=== PATIENT | male | born 1970 | race Caucasian/White ===

== ENCOUNTER 2020-05-25 20:33 | Emergency (ER) | payer OTHER ==
--- NOTE | 2020-05-25 20:37 | ED Physician Documentation ---
PD HPI CHEST PAIN - Stated complaint Stated Complaint: CP - History obtained from History obtained from: Patient - History of Present Illness Timing - onset: How many minutes ago (30) Timing - onset during: Rest Timing - duration: Minutes (20-30) Timing - details: Abrupt onset Pain level max: 4 Pain level now: 0 Quality: Pressure Location: Substernal Radiation: Back Improved by: Nothing Worsened by: Other (no exacerbating factors) Associated symptoms: No: Shortness of air, Diaphoresis, Nausea, Vomiting, Feeling faint / dizzy, General Weakness, Palpitations Similar symptoms before: Has not had sx before Recently seen: Not recently seen - Additional information Additional information: patient c/o midline chest pressure with similar sensation upper back, describes it as sensation of his chest and upper back being squeezed towards each other. His first episode was Sunday (2 days ago) while walking, lasted only 30-60 seconds. He had not previously had this symptom. He had recurrence of this discomfort tonight, approximately 30 minutes [employer] while at home at rest. Denies dyspnea, nausea, diaphoresis. No exacerbating nor ameliorating factors. He has not seen a doctor for a few years but has no known medical history or medical problems. Currently (on this H+P), he is asymptomatic. Review of Systems Constitutional: reports: Reviewed and negative Eyes: reports: Reviewed and negative Ears: reports: Reviewed and negative Nose: reports: Reviewed and negative Throat: reports: Reviewed and negative Cardiac: reports: Chest pain / pressure. denies: Palpitations, Pedal edema, Calf pain Respiratory: reports: Reviewed and negative GI: reports: Reviewed and negative : denies: Dysuria, Frequency Skin: reports: Reviewed and negative Musculoskeletal: reports: Back pain (pressure/squeezing to back that is similar to the pressure felt in the anterior chest) Neurologic: reports: Reviewed and negative PD PAST MEDICAL HISTORY - Past Medical History Past Medical History: No - Past Surgical History Past Surgical History: No - Present Medications Home Medications: Ambulatory Orders Medication Instructions Recorded Confirmed No Known Home Medications 05/25/20 05/25/20 - Allergies Allergies/Adverse Reactions: Allergies Allergy/AdvReac Type Severity Reaction Status Date / Time No Known Drug Allergies Allergy Verified 05/25/20 20:51 - Living Situation Living Arrangement: reports: At home - Social History Does the pt smoke?: No PD ED PE NORMAL - Vitals Vital signs reviewed: Yes - General General: Alert and oriented X 3, No acute distress, Well developed/nourished - HEENT HEENT: Moist mucous membranes - Neck Neck: Supple, no meningeal sign - Cardiac Cardiac: RRR, No murmur, No gallop, No rub - Respiratory Respiratory: No respiratory distress, Clear bilaterally - Abdomen Abdomen: Soft, Non tender - Derm Derm: Normal color, Warm and dry - Extremities Extremities: No edema - Neuro Neuro: Alert and oriented X 3 Results - Vitals Vitals: Vital Signs - 24 hr 05/25/20 05/25/20 05/25/20 20:36 20:45 20:50 Temperature 36.5 C Heart Rate 91 84 Respiratory 28 H 27 H Rate Blood Pressure 188/106 H 188/110 H Blood Pressure 187/112 H [Right] O2 Saturation 98 98 05/25/20 05/25/20 05/26/20 22:29 23:31 00:13 Temperature 36.5 C Heart Rate 77 76 82 Respiratory 23 21 27 H Rate Blood Pressure 185/113 H 184/117 H 172/111 H Blood Pressure [Right] O2 Saturation 96 98 98 05/26/20 05/26/20 05/26/20 00:30 01:06 01:43 Temperature Heart Rate 84 85 74 Respiratory 14 18 20 Rate Blood Pressure 184/137 H 160/82 H 151/90 H Blood Pressure [Right] O2 Saturation 96 96 95 05/26/20 02:20 Temperature Heart Rate 84 Respiratory 19 Rate Blood Pressure 134/67 H Blood Pressure [Right] O2 Saturation 95 Oxygen O2 Source Room air - EKG (time done) No standard instances Rate: Rate (enter#) (84) Rhythm: NSR Tow: Normal Intervals: Normal NH QRS: Normal Ischemia: ST depression (minimal (less than 1 mm) ST depression V4, V5), Q waves (isolated QIII) - Labs Labs: Laboratory Tests 05/25/20 05/25/20 05/25/20 20:42 20:42 20:42 WBC 12.9 H RBC 5.34 Hgb 16.0 Hct 46.4 MCV 86.9 MCH 30.0 MCHC 34.5 RDW 12.3 Plt Count 336 MPV 10.3 Neut # (Auto) 9.1 H Lymph # (Auto) 2.8 [place] # (Auto) 0.6 Eos # (Auto) 0.2 Baso # (Auto) 0.1 Absolute Nucleated RBC 0.00 Nucleated RBC % 0.0 VBG pH VBG pCO2 VBG pO2 VBG HCO3 VBG Total CO2 VBG O2 Saturation VBG Base Excess Sodium 138 Potassium 4.3 Chloride 98 L Carbon Dioxide 28 Anion Gap 12.0 BUN 14 Creatinine 1.0 Estimated GFR (MDRD) 80 L Glucose 454 H POC Whole Bld Glucose Calcium 9.6 Total Bilirubin 0.6 AST 13 ALT 25 Alkaline Phosphatase 114 Troponin I High Sens 31.7 H* Total Protein 7.5 Albumin 4.6 Globulin 2.9 Albumin/Globulin Ratio 1.6 Lipase 29 Nasal Adenovirus (PCR) Nasal B. parapertussis DNA (PCR) Nasal Coronavir 229E PCR Nasal Coronavir HKU1 PCR Nasal Coronavir NL63 PCR Nasal Coronavir OC43 PCR Nasal Enterovir/Rhinovir PCR Nasal Influenza B PCR Nasal Influenza A PCR Nasal Parainfluen 1 PCR Nasal Parainfluen 2 PCR Nasal Parainfluen 3 PCR Nasal Parainfluen 4 PCR Nasal RSV (PCR) Nasal B.pertussis DNA PCR Nasal C.pneumoniae (PCR) [place] Human Metapneumo PCR Nasal M.pneumoniae (PCR) Nasal SARS-CoV-2 (PCR) Serum Ketones 05/25/20 05/25/20 05/25/20 20:42 21:31 22:04 WBC RBC Hgb Hct MCV MCH MCHC RDW Plt Count MPV Neut # (Auto) Lymph # (Auto) [place] # (Auto) Eos # (Auto) Baso # (Auto) Absolute Nucleated RBC Nucleated RBC % VBG pH 7.428 H VBG pCO2 32.9 L VBG pO2 80.5 H VBG HCO3 21.2 L VBG Total CO2 22.3 L VBG O2 Saturation 96.4 H VBG Base Excess -2.1 L Sodium Potassium Chloride Carbon Dioxide Anion Gap BUN Creatinine Estimated GFR (MDRD) Glucose POC Whole Bld Glucose 429 H Calcium Total Bilirubin AST ALT Alkaline Phosphatase Troponin I High Sens Total Protein Albumin Globulin Albumin/Globulin Ratio Lipase Nasal Adenovirus (PCR) Nasal B. parapertussis DNA (PCR) Nasal Coronavir 229E PCR Nasal Coronavir HKU1 PCR Nasal Coronavir NL63 PCR Nasal Coronavir OC43 PCR Nasal Enterovir/Rhinovir PCR Nasal Influenza B PCR Nasal Influenza A PCR Nasal Parainfluen 1 PCR Nasal Parainfluen 2 PCR Nasal Parainfluen 3 PCR Nasal Parainfluen 4 PCR Nasal RSV (PCR) Nasal B.pertussis DNA PCR Nasal C.pneumoniae (PCR) [place] Human Metapneumo PCR Nasal M.pneumoniae (PCR) Nasal SARS-CoV-2 (PCR) Serum Ketones NEGATIVE 05/25/20 05/25/20 05/26/20 23:01 23:30 00:52 WBC RBC Hgb Hct MCV MCH MCHC RDW Plt Count MPV Neut # (Auto) Lymph # (Auto) [place] # (Auto) Eos # (Auto) Baso # (Auto) Absolute Nucleated RBC Nucleated RBC % VBG pH VBG pCO2 VBG pO2 VBG HCO3 VBG Total CO2 VBG O2 Saturation VBG Base Excess Sodium Potassium Chloride Carbon Dioxide Anion Gap BUN Creatinine Estimated GFR (MDRD) Glucose POC Whole Bld Glucose 400 H Calcium Total Bilirubin AST ALT Alkaline Phosphatase Troponin I High Sens 70.9 H* Total Protein Albumin Globulin Albumin/Globulin Ratio Lipase Nasal Adenovirus (PCR) NOT DETECTED Nasal B. parapertussis DNA (PCR) NOT DETECTED Nasal Coronavir 229E PCR NOT DETECTED Nasal Coronavir HKU1 PCR NOT DETECTED Nasal Coronavir NL63 PCR NOT DETECTED Nasal Coronavir OC43 PCR NOT DETECTED Nasal Enterovir/Rhinovir PCR NOT DETECTED Nasal Influenza B PCR NOT DETECTED Nasal Influenza A PCR NOT DETECTED Nasal Parainfluen 1 PCR NOT DETECTED Nasal Parainfluen 2 PCR NOT DETECTED Nasal Parainfluen 3 PCR NOT DETECTED Nasal Parainfluen 4 PCR NOT DETECTED Nasal RSV (PCR) NOT DETECTED Nasal B.pertussis DNA PCR NOT DETECTED Nasal C.pneumoniae (PCR) NOT DETECTED [place] Human Metapneumo PCR NOT DETECTED Nasal M.pneumoniae (PCR) NOT DETECTED Nasal SARS-CoV-2 (PCR) NOT DETECTED Serum Ketones - Rads (name of study) chest xray Radiology: Prelim report reviewed, See rad report PD MEDICAL DECISION MAKING - ED course Complexity details: reviewed results, re-evaluated patient, considered differential, d/w patient ED course: nonspecific findings on nearly-normal EKG (questionable minimal ST depression V4, V5). However, patient's high sensitivity troponin is 31.7, representing a mild increase above normal. Also noted are persistently high blood pressure readings (110s diastolic, with systolic ranging from 170s-190s) as well as markedly elevated blood sugar (450s). Patient does not have diagnosis of DM nor HTN, although he has not seen a PMD on a recent nor regular basis. Serum ketones negative. Two-hour repeat high sensitivity troponin is more than doubled to 70.9 which is certainly a concerning finding. He has had some further episodes of his chest discomfort while in ED, both at rest as well as with ambulation to bathroom. He does not get other symptoms with this (denies nausea, dyspnea, lightheadedness, diaphoresis). He is given 325mg PO aspirin, heparin IV per cardiac protocol including bolus. One inch of NTP applied to chest wall (subsequent to this his blood pressure improved significantly). I discussed the case with Dr. Mclaughlin (cardiology personnel consultant at [facility]), agrees patient should be transferred to [facility]. He recommends 300mg PO Plavix as well and this is given. I discussed the case with Dr. Adames (hospitalist at [facility]), accepts patient for transfer to [facility]. Vital signs remained stable during ED stay. All results d/w patient as they were received and he was kept informed by ED RN and myself of recommendations for treatment and transfer and he expresses understanding of, and agreement with, these treatments and transfer. Departure - Departure Disposition: 02 Transfer Acute Care Hosp Clinical Impression: Unstable angina, Hyperglycemia Hypertension Qualifiers: Hypertension type: unspecified Qualified Code(s): I10 - Essential (primary) hypertension Condition: Stable Discharge Date/Time: 05/26/20 02:48
[2020-05-25 21:03] LABS: BASOPHILS # (AUTO) 0.1 10^3/uL (0.0-0.1); BASOPHILS % (AUTO) 0.5 %; EOSINOPHILS # (AUTO) 0.2 10^3/uL (0.0-0.7); EOSINOPHILS % (AUTO) 1.6 %; HCT - HEMATOCRIT 46.4 % (42.0-52.0); LYMPHOCYTES # (AUTO) 2.8 10^3/uL (1.5-3.5); LYMPHOCYTES % (AUTO) 21.6 %; MEAN CORPUSCULAR HGB CONC 34.5 g/dL (32.0-36.0); MEAN CORPUSCULAR VOLUME 86.9 fL (80.0-94.0); MEAN PLATELET VOLUME 10.3 fL (7.4-11.4); MONOCYTES # (AUTO) 0.6 10^3/uL (0.0-1.0); MONOCYTES % (AUTO) 4.9 %; NEUTROPHILS # (AUTO) 9.1 10^3/uL (1.5-6.6); PLT - PLATELET COUNT 336 10^3/uL (130-450); RED BLOOD COUNT 5.34 10^6/uL (4.70-6.10); RED CELL DISTRIBUTION WIDTH 12.3 % (12.0-15.0); WHITE BLOOD COUNT 12.9 x10^3/uL (4.8-10.8)
[2020-05-25 21:15] LABS: ALBUMIN 4.6 g/dL (3.2-5.5); ALBUMIN/GLOBULIN RATIO 1.6 (1.0-2.2); BILIRUBIN,TOTAL 0.6 mg/dL (0.2-1.0); CALCIUM 9.6 mg/dL (8.5-10.3); POTASSIUM 4.3 mmol/L (3.5-5.0); TOTAL PROTEIN 7.5 g/dL (6.7-8.2)
--- NOTE | 2020-05-25 21:39 | XRAY Report ---
PROCEDURE: Chest 2 View X-Ray INDICATIONS: chest pain TECHNIQUE: 2 view(s) of the chest. COMPARISON: None. FINDINGS: Surgical changes and devices: None. Lungs and pleura: No pleural effusions or pneumothorax. Lungs are clear. Mediastinum: Mediastinal contours are normal. Heart size is normal. Bones and chest wall: No suspicious bony abnormalities. Soft tissues appear unremarkable. IMPRESSION: No acute pulmonary process. Reviewed by: Shannon Mora MD on 05/25/2020 9:38 PM [facility] Approved by: Shannon Mora MD on 05/25/2020 9:38 PM [facility] Station ID: [id number]
[2020-05-25 21:42] LABS: VBG BASE EXCESS -2.1 mmol/L (-2 - +2); VBG HCO3 21.2 mmol/L (23-28); VBG OXYGEN SATURATION 96.4 % (60-80); VBG PCO2 32.9 mmHg (41-51); VBG PH 7.428 (7.31-7.41); VBG PO2 80.5 mmHg (25-47); VBG TOTAL CO2 22.3 mmol/L (24-29)
[2020-05-25] MEDS ORDERED: SODIUM CHLORIDE 0.9% 1,000 ML IV STA (22:10)
[2020-05-25] MEDS ORDERED: ASPIRIN CHEW 81 MG TABLET PO STA (23:41)
[2020-05-25] MEDS ORDERED: NITROGLYCERIN 2% PASTE TOP STA (23:42)
[2020-05-25] MEDS ORDERED: HEPARIN 25000UNITS/500ML (D5W) 25,000 UNIT/500 ML BAG IV SCH (23:45)
[2020-05-26] MEDS ORDERED: CLOPIDOGREL 300 MG TABLET PO STA (00:51)
[2020-05-26 01:51] LABS: CORONAVIRUS 229E-RESP PCR NOT DETECTED; CORONAVIRUS HKU1-RESP PCR NOT DETECTED; CORONAVIRUS NL63-RESP PCR NOT DETECTED; CORONAVIRUS OC43-RESP PCR NOT DETECTED
[2020-05-26 01:52] LABS: B. PARAPERTUSSIS- RESP PCR PAN NOT DETECTED; B. PERTUSSIS- RESP PCR PANEL NOT DETECTED; C. PNEUMONIAE- RESP PCR PANEL NOT DETECTED; HUMAN METAPNEUMOVIRUS NOT DETECTED; INFLUENZA A- RESP PCR PANEL NOT DETECTED; INFLUENZA B - RESP PCR PANEL NOT DETECTED; M. PNEUMONIAE- RESP PCR PANEL NOT DETECTED; PARAINFLUENZA VIRUS 1 NOT DETECTED; PARAINFLUENZA VIRUS 2 NOT DETECTED; PARAINFLUENZA VIRUS 3 NOT DETECTED; PARAINFLUENZA VIRUS 4 NOT DETECTED; RHINOVIRUS/ENTEROVIRUS NOT DETECTED; RSV- RESP PCR PANEL NOT DETECTED; SARS-CoV-2 -RESP PCR PANEL NOT DETECTED
[2020-05-26 02:20] VITALS: BP 134/67
== END 2020-05-26 02:48 | disposition short-term general hospital (02) ==
LOC: ED 20:33
DX: I20.0 Unstable angina (principal); I10 Essential (primary) hypertension; R73.9 Hyperglycemia, unspecified; Z20.822 Contact with and (suspected) exposure to COVID-19
CPT/HCPCS: 0202U; 36415; 71046; 80053; 82009; 82803; 83690; 84484; 85025; 93005; 96374; 99284; 99285; A9270

== ENCOUNTER 2020-05-26 02:49 | Outpatient (CLI) | payer OTHER | END 2020-05-26 02:50 | disposition short-term general hospital (02) | LOC: EMS 02:49 | PROVIDERS: ATTEND Emergency Medicine | DX: I21.4 Non-ST elevation (NSTEMI) myocardial infarction (principal); I20.0 Unstable angina | CPT/HCPCS: A0425; A0426 ==

== ENCOUNTER 2021-06-26 07:25 | Emergency (ER) | payer OTHER ==
[2021-06-26] MEDS ORDERED: HYDROmorphone 1 MG/ML CARPUJECT IVP STA (07:49)
[2021-06-26] MEDS ORDERED: ONDANSETRON 4 MG/2 ML VIAL IVP STA (07:49)
[2021-06-26] MEDS ORDERED: KETOROLAC 30 MG/ML VIAL IVP STA (07:49)
--- NOTE | 2021-06-26 07:53 | ED Physician Documentation ---
PD HPI ABD PAIN - Stated complaint Stated Complaint: BACK/ABD PAIN - Chief complaint Chief Complaint: Abd Pain - History obtained from History obtained from: Patient - Additional information Additional information: 51-year-old gentleman with history of coronary disease, with TX stented about 13 months ago was seen by my partner 2 days ago for a first episode of renal colic and found to have a 4 mm right proximal ureteral stone. He was sent home with prescriptions for hydrocodone, tamsulosin, and ondansetron. Pain is intermittently quite severe despite these medications. Pain is in the right f lank and right abdomen. No vomiting. He has not noted any gross hematuria or urinary complaints. No fevers. Review of Systems Constitutional: denies: Fever, Chills Cardiac: reports: Reviewed and negative Respiratory: reports: Reviewed and negative GI: reports: Abdominal Pain. denies: Vomiting, Diarrhea : denies: Dysuria, Frequency PD PAST MEDICAL HISTORY - Past Medical History Cardiovascular: TX - Past Surgical History Past Surgical History: No - Present Medications Home Medications: Ambulatory Orders Medication Instructions Recorded Confirmed Aspirin Chewable [[place] Vlad[place]av 81 mg PO DAILY 06/24/21 06/24/21 Aspirin] Atorvastatin Calcium [Lipitor] 80 mg PO DAILY 06/24/21 06/24/21 Carvedilol [Coreg] 13 mg PO BID 06/24/21 06/24/21 Clopidogrel [Plavix] 75 mg PO DAILY 06/24/21 06/24/21 HYDROcod/ACETAM 5/325 [[place] 5/325] 1 - 2 tablet PO Q6H PRN #14 tablet 06/24/21 Losartan Potassium 25 mg PO DAILY 06/24/21 06/24/21 Ondansetron Odt [Zofran] 4 mg TL Q6H PRN #10 tablet 06/24/21 Pantoprazole [Protonix] 40 mg PO DAILY 06/24/21 06/24/21 Tamsulosin [Flomax] 1 cap PO DAILY #14 cap 06/24/21 metFORMIN [Glucophage] 500 mg PO BID 06/24/21 06/24/21 Naproxen 250 mg PO BID PRN #15 tablet 06/26/21 Oxycodone HCl/Acetaminophen 1 - 2 each PO Q6H PRN #20 tablet 06/26/21 [Percocet 5-325 mg Tablet] - Allergies Allergies/Adverse Reactions: Allergies Allergy/AdvReac Type Severity Reaction Status Date / Time No Known Drug Allergies Allergy Verified 06/26/21 07:37 - Social History Does the pt smoke?: No Smoking Status: Never smoker Does the pt drink ETOH?: Yes Does the pt have substance abuse?: No - Immunizations Immunizations are current?: Yes - POLST Patient has POLST: No PD ED PE NORMAL - Vitals Vital signs reviewed: Yes - General General: Alert and oriented X 3, No acute distress - Cardiac Cardiac: RRR, No murmur - Respiratory Respiratory: No respiratory distress, Clear bilaterally - Abdomen Abdomen: Normal bowel sounds, Soft, Non tender - Back Back: No CVA TTP, No spinal TTP - Derm Derm: Normal color, Warm and dry - Extremities Extremities: No edema, No calf tenderness / cord - Neuro Neuro: Alert and oriented X 3, Normal speech Results - Vitals Vitals: Vital Signs - 24 hr 06/26/21 07:37 Temperature 36 C L Heart Rate 81 Respiratory 18 Rate Blood Pressure 159/87 H O2 Saturation 96 Oxygen O2 Source Room air - Labs Labs: Laboratory Tests 06/26/21 08:02 Sodium 133 L Potassium 4.0 Chloride 97 L Carbon Dioxide 25 Anion Gap 11.0 BUN 19 Creatinine 1.7 H Estimated GFR (MDRD) 43 L Glucose 140 H Calcium 9.1 PD MEDICAL DECISION MAKING - ED course ED course: 51-year-old gentleman with known right renal colic with a 4 mm obstructing stone. Pain was controlled after a milligram of Dilaudid and 30 mg of Toradol here. Labs notable for some decrease in renal function discussed with him that he needs to push fluids and probably follow-up with urology this week. Hydrocodone was ineffective at home so he was prescribed oxycodone as well as a low-dose NSAID instead. Departure - Departure Disposition: 01 Home, Self Care Clinical Impression: Renal colic Condition: Good Record reviewed to determine appropriate education?: Yes Instructions: ED Stone Renal W Colic Prescriptions: Naproxen 250 mg PO BID PRN #15 tablet PRN Reason: Pain Oxycodone HCl/Acetaminophen [Percocet 5-325 mg Tablet] 1 - 2 each PO Q6H PRN #20 tablet PRN Reason: pain Comments: I sent new prescriptions electronically to [facility] in [place]. Continue the tamsulosin./Flomax. Return for new or worsening symptoms. At this point is reasonable to follow-up with urologist. Even though the stone was small, the persistent pain is worrisome and your kidney function has gone down just a bit, the closest urologist is in [place], call [phone] for an appointment. Call Sunday for an appointment. Also reasonable to call your care asst on Sunday to confirm that it is okay to stop Plavix/clopidogrel, as if the urologist has to do a procedure on you, that may need to be stopped for a few days prior to a procedure. Take the copy of the CAT scan on CD with you to urology appointment. Drink plenty of fluids. I am prescribing a short course of narcotic pain medication for you. These are potentially dangerous and addictive medications that should be used carefully. These medications may constipate you. Take an [id number] stool softener (docusate) twice daily with plenty of water while taking these medications. If you go 24 hours without a bowel movement, take [id number] miralax, per package instructions. Do not drink or drive while taking these medications. If you received narcotic or sedating medications while in the emergency department, do not drive for 24 hours. Store this medication in a safe, secure place and out of reach of children. It is a violation of federal law to give or sell this medication to another person or to use in a manner other than prescribed. The ED will not refill narcotic prescriptions, including prescriptions lost or stolen. To dispose of unwanted medications: 1. [facility] at [address] in [place] has a medication drop box. They accept prescription medications (in pill form) Sunday through Sunday 9:00 a.m. to 5:00 p.m. 2. The [facility] [employer] accepts prescription medications (in pill form only) for disposal year round. Call for more information. 3. Contact the [facility] for the next [facility] sponsored prescription drug collection event. , [phone], or [phone]; Note that many narcotic pain relievers also contain Tylenol/acetaminophen. Please ensure that your total dose of acetaminophen from all sources does not exceed 3 g (3000 mg) per day.
[2021-06-26 08:40] LABS: CALCIUM 9.1 mg/dL (8.5-10.3); CREATININE 1.7 mg/dL (0.6-1.2)
[2021-06-26 09:43] VITALS: BP 142/92
== END 2021-06-26 09:45 | disposition home or self-care (01) ==
LOC: ED 07:25
DX: N20.0 Calculus of kidney (principal)
CPT/HCPCS: 36415; 80048; 96374; 96375; 99282; 99283; J1170

== ENCOUNTER 2022-10-16 11:40 | Emergency (ER) | payer OTHER ==
[2022-10-16 11:56] VITALS: BP 175/98
[2022-10-16 12:08] LABS: BASOPHILS # (AUTO) 0.1 10^3/uL (0.0-0.1); BASOPHILS % (AUTO) 0.4 %; EOSINOPHILS # (AUTO) 0.2 10^3/uL (0.0-0.7); EOSINOPHILS % (AUTO) 1.6 %; HCT - HEMATOCRIT 43.2 % (42.0-52.0); HGB - HEMOGLOBIN 14.2 g/dL (14.0-18.0); LYMPHOCYTES # (AUTO) 1.4 10^3/uL (1.5-3.5); LYMPHOCYTES % (AUTO) 10.7 %; MEAN CORPUSCULAR HEMOGLOBIN 28.5 pg (27.0-31.0); MEAN CORPUSCULAR HGB CONC 32.9 g/dL (32.0-36.0); MEAN CORPUSCULAR VOLUME 86.7 fL (80.0-94.0); MONOCYTES # (AUTO) 0.9 10^3/uL (0.0-1.0); MONOCYTES % (AUTO) 6.6 %; NEUTROPHILS # (AUTO) 10.8 10^3/uL (1.5-6.6); NEUTROPHILS % (AUTO) 80.3 %; PLT - PLATELET COUNT 311 10^3/uL (130-450); RED BLOOD COUNT 4.98 10^6/uL (4.70-6.10); RED CELL DISTRIBUTION WIDTH 12.9 % (12.0-15.0); WHITE BLOOD COUNT 13.4 x10^3/uL (4.8-10.8)
[2022-10-16 12:53] LABS: ALBUMIN 4.6 g/dL (3.2-5.5); ALBUMIN/GLOBULIN RATIO 1.6 (1.0-2.2); BILIRUBIN,TOTAL 0.5 mg/dL (0.2-1.0); CALCIUM 9.7 mg/dL (8.5-10.3); CREATININE 1.3 mg/dL (0.6-1.3); POTASSIUM 4.6 mmol/L (3.5-4.5); TOTAL PROTEIN 7.4 g/dL (6.4-8.9)
[2022-10-16] MEDS ORDERED: SODIUM CHLORIDE 0.9% 1,000 ML IV STA (13:58)
[2022-10-16] MEDS ORDERED: KETOROLAC 30 MG/ML VIAL IVP STA (14:02)
--- NOTE | 2022-10-16 14:08 | ED Physician Documentation ---
History of Present Illness - Stated complaint Stated Complaint: L FLANK PX - Chief complaint Chief Complaint: Abd Pain - Additonal information Additional information: 52-year-old male presents emergency department for evaluation of acute left- sided abdominal pain. Began briefly yesterday described as a cramping stabbing sensation that went away however when he woke up this morning had returned. He does have a history of previous renal colic but always on the right side. He denies melena or hematochezia. Some nausea and vomiting. No urinary symptoms. He is followed by [facility] urology. He has never required ithotripsy or stenting related to previous kidney stones. Historically has been on Flomax but has not taken for quite some time. Review of Systems Constitutional: denies: Fever, Chills GI: reports: Abdominal Pain, Vomiting. denies: Bloody / black stool : reports: Reviewed and negative Skin: reports: Reviewed and negative PD PAST MEDICAL HISTORY - Past Medical History Cardiovascular: IN - Past Surgical History Past Surgical History: No - Present Medications Home Medications: Ambulatory Orders Medication Instructions Recorded Confirmed Aspirin Chewable [[place] 81 mg PO DAILY 06/24/21 06/24/21 Aspirin] Atorvastatin Calcium [Lipitor] 80 mg PO DAILY 06/24/21 06/24/21 Carvedilol [Coreg] 13 mg PO BID 06/24/21 06/24/21 Clopidogrel [Plavix] 75 mg PO DAILY 06/24/21 06/24/21 HYDROcod/ACETAM 5/325 [[place] 5/325] 1 - 2 tablet PO Q6H PRN #14 tablet 06/24/21 Losartan Potassium 25 mg PO DAILY 06/24/21 06/24/21 Ondansetron Odt [Zofran] 4 mg TL Q6H PRN #10 tablet 06/24/21 Pantoprazole [Protonix] 40 mg PO DAILY 06/24/21 06/24/21 Tamsulosin [Flomax] 1 cap PO DAILY #14 cap 06/24/21 metFORMIN [Glucophage] 500 mg PO BID 06/24/21 06/24/21 Naproxen 250 mg PO BID PRN #15 tablet 06/26/21 Oxycodone HCl/Acetaminophen 1 - 2 each PO Q6H PRN #20 tablet 06/26/21 [Percocet 5-325 mg Tablet] Amox/Clav 875/125 [Augmentin] 1 each PO Q12H #14 tablet 10/16/22 HYDROcod/ACETAM 5/325 [[place] 5/325] 1 tablet PO BID PRN #10 tablet 10/16/22 - Allergies Allergies/Adverse Reactions: Allergies Allergy/AdvReac Type Severity Reaction Status Date / Time No Known Drug Allergies Allergy Verified 06/26/21 07:37 - Social History Does the pt smoke?: No Smoking Status: Never smoker Does the pt drink ETOH?: Yes Does the pt have substance abuse?: No - Immunizations Immunizations are current?: Yes - POLST Patient has POLST: No PD ED PE NORMAL - General General: Alert and oriented X 3, No acute distress, Well developed/nourished - HEENT HEENT: Atraumatic, Moist mucous membranes - Neck Neck: Supple, no meningeal sign - Cardiac Cardiac: RRR, No murmur - Respiratory Respiratory: No respiratory distress - Abdomen Abdomen: Normal bowel sounds, Soft. No: Non tender (Mild left upper quadrant abdominal pain. No flank or CVA tenderness. No pain in the left lower quadrant. No guarding or rebound.) - Back Back: No CVA TTP - Derm Derm: Normal color, Warm and dry, No rash - Extremities Extremities: No deformity - Neuro Neuro: Alert and oriented X 3 Eye Opening: Spontaneous Motor: Obeys Commands Verbal: Oriented GCS Score: 15 Results - Vitals Vitals: Vital Signs - 24 hr 10/16/22 11:48 Temperature 36.5 C Heart Rate 70 Respiratory 22 Rate Blood Pressure 175/98 H O2 Saturation 97 Oxygen O2 Source Room air - EKG (time done) 1103 EKG releavant findings:: EKG personally interpreted by author of this note. Relevant findings are: - Labs Labs: Laboratory Tests 10/16/22 10/16/22 10/16/22 12:03 12:03 13:07 WBC 13.4 H RBC 4.98 Hgb 14.2 Hct 43.2 MCV 86.7 MCH 28.5 MCHC 32.9 RDW 12.9 Plt Count 311 MPV 10.0 Neut # (Auto) 10.8 H Lymph # (Auto) 1.4 L [place] # (Auto) 0.9 Eos # (Auto) 0.2 Baso # (Auto) 0.1 Absolute Nucleated RBC 0.00 Nucleated RBC % 0.0 Sodium 137 Potassium 4.6 H Chloride 106 Carbon Dioxide 26 Anion Gap 5.0 L BUN 15 Creatinine 1.3 Estimated GFR (MDRD) 58 L Glucose 186 H Calcium 9.7 Total Bilirubin 0.5 AST 15 ALT 23 Alkaline Phosphatase 69 Total Protein 7.4 Albumin 4.6 Globulin 2.8 Albumin/Globulin Ratio 1.6 Lipase 18 Urine Color DARK YELLOW Urine Clarity HAZY Urine pH 5.5 Ur Specific [place] >=1.030 H Urine Protein TRACE Urine Glucose (UA) NEGATIVE Urine Ketones NEGATIVE Urine Occult Blood LARGE H Urine Nitrite NEGATIVE Urine Bilirubin NEGATIVE Urine Urobilinogen 0.2 (NORMAL) Ur Leukocyte Esterase NEGATIVE Urine RBC 0-5 Urine WBC 0-3 Ur Squamous Epith Cells NONE SEEN Urine Crystals >50 Uric Acid Urine Bacteria Few Ur Microscopic Review INDICATED Urine Culture Comments NOT INDICATED - Rads (name of study) abd CT w Relevant Findings:: Final report received (Punctate obstructing distal left ureter calcification resulting in perinephritic inflammation and mild left hydronephrosis. Findings of short segment acute focal diverticulitis left lower quadrant superimposed on pericolonic diverticulitis.) PD Medical Decision Making - ED course Complexity details: reviewed results, re-evaluated patient, d/w patient ED course: 52-year-old male presents emergency department for evaluation of cute onset le ft-sided abdominal pain. He describes sharp cramping nature to the pain different than what he is experienced in the past with right-sided renal colic. No melena or hematochezia. Here in the emergency department did obtain CBC, electrolytes. Per my interpretation mild leukocytosis with white count of 13.4 thousand. Serum chemistry reveals normal renal function. Blood glucose mildly elevated as expected back did in the setting of diabetes. Urinalysis shows no signs of infection though there is large amount of occult blood. Subsequently CT of the abdomen was completed which showed a punctate obstructing distal left ureter calcification resulting in perinephric inflammation and mild left hydronephrosis. He was also found to have some diverticulitis on the left side. I am I discussed the imaging findings with the patient. He does have Flomax at home and will begin taking once he gets home. He will also follow closely with his urologist. For treatment of the diverticulitis he will be started on Augmentin. He is recommended ibuprofen for analgesia limited amount of hydrocodone is going be sent to patient's preferred pharmacy. I discussed with him that given the findings of diverticulitis on CT scan he will need a follow-up colonoscopy. The usual emergent return precautions were discussed for worsening pain, fevers, melena or uncontrolled vomiting. Departure - Departure Disposition: 01 Home, Self Care Clinical Impression: Left ureteral stone, Diverticulitis Condition: Stable Record reviewed to determine appropriate education?: Yes Prescriptions: Amox/Clav 875/125 [Augmentin] 1 each PO Q12H #14 tablet HYDROcod/ACETAM 5/325 [[place] 5/325] 1 tablet PO BID PRN #10 tablet PRN Reason: Pain Comments: Haja powell are seen today for left-sided abdominal pain. Your CT imaging shows that you do have a left ureter stone causing some back up into the kidney. I do recommend that you begin taking the Flomax daily until you are seen by your urologist. The CT scan also showed some diverticulitis of the large intestine. This is an inflammation of the intestine and with this new finding you will need a screening colonoscopy once a diverticulitis flare has resolved. To treat that I am starting you on Augmentin which she will take twice daily for the next week. In general I would recommend that you take ibuprofen 600 mg with food 2-3 times a day for your discomfort. For worsening symptoms I have sent a limited prescription of hydrocodone to [facility] in [place]. If at any point you find that you are having worsening symptoms, black or bloody stools, fevers, uncontrolled vomiting then you do need to return immediately to the ER for repeat evaluation. Forms: PCP List
[2022-10-16 14:24] LABS: BILIRUBIN,URINE NEGATIVE (NEGATIVE); GLUCOSE, URINE (UA) NEGATIVE (NEGATIVE); KETONES,URINE (UA) NEGATIVE (NEGATIVE); LEUKOCYTE ESTERASE, URINE NEGATIVE (NEGATIVE); NITRITE,URINE NEGATIVE (NEGATIVE); OCCULT BLOOD,URINE LARGE (NEGATIVE); PH,URINE 5.5 PH (5.0-7.5); PROTEIN,URINE TRACE mg/dL (NEGATIVE); UROBILINOGEN,URINE 0.2 (NORMAL) E.U./dL (NORMAL)
[2022-10-16 14:35] LABS: CLARITY,URINE HAZY (CLEAR)
[2022-10-16 14:41] LABS: BACTERIA,URINE Few /HPF (None Seen); RBC,URINE 0-5 /HPF (0-5); SQUAMOUS EPITHELIAL CELL,UR NONE SEEN (<= Few); WBC,URINE 0-3 /HPF (0-3)
[2022-10-16 14:42] LABS: CRYSTALS,URINE >50 Uric Acid /LPF
--- NOTE | 2022-10-16 16:17 | CT Report ---
PROCEDURE: ABDOMEN/PELVIS W INDICATIONS: left flank pain; ? renal ureter colic CONTRAST: 100mL Omni 300 TECHNIQUE: After the administration of intravenous contrast, 5 mm thick sections acquired from the diaphragms to the symphysis. 5 mm thick coronal and sagittal reformats were acquired. For radiation dose reducti on, the following was used: automated exposure control, adjustment of mA and/or kV according to johan ent size. COMPARISON: 06/24/2021 FINDINGS: Image quality: Excellent. Lung bases and heart: No parenchymal consolidations or effusions. Normal size heart. No hiatal hernia . Liver: Mild hepatic steatosis. No visible mass. Gallbladder and biliary tree: Normal. Spleen: No splenomegaly. Pancreas: No pancreatic ductal dilation. Adrenals: No adrenal nodule. Kidneys and ureters: There is symmetric enhancement. Mild left hydronephrosis and mild to moderate pe rinephric fat stranding. Nonobstructing lower pole intrarenal calculus measuring about 8 mm on the le ft with Hounsfield units of 433. Minimal periureteric inflammation. There is a punctate calcification in the distal ureter 2 small to measure. Right kidney and ureter are normal.. Bowel and peritoneum: Extensive diverticula throughout the entire colon. There is focal pericolonic i nflammation along the mesenteric side of the colon in the left lower quadrant. No extraluminal gas. S tomach and small bowel are normal. No free fluid or free air. Lymph nodes: Several tiny left retroperitoneal lymph nodes are present. No bulky adenopathy. Vessels: No infrarenal aortic aneurysm. PELVIS Reproductive organs: Mildly enlarged prostate gland. Bladder: No abnormal wall thickening, accounting for underdistension. Pelvic lymph nodes: No pelvic adenopathy by size criteria. Bones: No aggressive osseous abnormality. Disc degeneration L5-S1. Other: No significant ventral or inguinal hernia. IMPRESSION: 1. Punctate obstructing left distal ureteral calcification resulting in perinephric inflammation and mild left hydronephrosis. 2. Findings of short segment acute focal diverticulitis in the left lower quadrant superimposed on pa ncolonic diverticulosis. Reviewed by: Jes Cui MD on 10/16/2022 4:15 PM PDT Approved by: Jes Cui MD on 10/16/2022 4:15 PM PDT Station ID: [id number]
[2022-10-16] MEDS ORDERED: iohexoL-300 100 ML VIAL IVP ONE (19:29)
== END 2022-10-16 16:58 | disposition home or self-care (01) ==
LOC: ED 11:40
DX: N13.2 Hydronephrosis with renal and ureteral calculous obstruction (principal); K57.32 Diverticulitis of large intestine without perforation or abscess without bleeding
CPT/HCPCS: 36415; 74177; 80053; 81001; 83690; 85025; 96374; 99284; Q9967; 81003; 87086